=== PATIENT | male | born 1975 | race Caucasian/White ===

== ENCOUNTER 2018-06-04 11:52 | Emergency (ER) | payer SELFPAY ==
--- OUTSIDE RECORDS SUMMARY | 2018-06-04 11:55 | XMS REPORT | Clinical Summary ---
:1975 Author Organization [facility] Address [address] [place] [address] Phone Care Team Providers Name Role Phone Unavailable Primary Care Provider Unavailable Allergies Active Allergy Reactions Severity Noted Date Comments Penicillins 08/04/2017 Current Medications Prescription Sig. Disp. Refills Start Date End Date Status verapamil Take 180 mg Active (CALAN-SR) 180 MG by mouth ER tablet nightly. clindamycin Take 1 21 capsule 0 08/04/2017 08/11/2017 (CLEOCIN) 300 MG capsule (300 capsule mg total) by mouth 3 (three) times daily for 7 days. acetaminophen-codei Take 1-2 15 tablet 0 08/04/2017 08/04/2017 Discontinued ne (TYLENOL #3) tablets by 300-30 mg per mouth every 6 tablet (six) hours as needed for Pain for up to 10 days. Max Daily Amount: 8 tablets acetaminophen-codei Take 1-2 15 tablet 0 08/04/2017 08/14/2017 ne (TYLENOL #3) tablets by 300-30 mg per mouth every 6 tablet (six) hours as needed for Pain for up to 10 days. Max Daily Amount: 8 tablets Active Problems Not on file Encounters Date Type Specialty Care Team Description 08/04/2017 Emergency Emergency Medicine Jimmie Fonseca, Abscess of right thigh (Primary Dx) after 06/03/2017 Immunizations Name Dates Previously Given Next Due Tdap 08/04/2017 Social History Tobacco Use Types Packs/Day Years Used Date Current Every Day Smoker Smokeless Tobacco: Never Used Alcohol Use Drinks/Week oz/Week Comments Yes Sex Assigned at Date Recorded Not on file Last Filed Vital Signs Vital Sign Reading Time Taken Blood Pressure 138/76 08/04/2017 12:24 PM [facility] [employer] Pulse 80 08/04/2017 12:24 PM [facility] Temperature 36.4 C (97.6 F) 08/04/2017 10:17 AM [facility] Respiratory Rate 18 08/04/2017 12:24 PM [facility] [employer] Oxygen Saturation 98% 08/04/2017 12:24 PM [facility] [employer] [employer] Inhaled Oxygen Concentration - - Weight 86.9 kg (191 lb 9.3 oz) 08/04/2017 10:17 AM [facility] [employer] Height 182.9 cm (6') 08/04/2017 10:17 AM [facility] [employer] Body Mass Index 25.98 08/04/2017 10:17 AM [facility] Plan of Treatment Not on file Procedures Procedure Name Priority Date/Time Associated Diagnosis Comments INCISION AND DRAINAGE Routine 08/04/2017 12:18 PM [facility] [employer] after 06/03/2017 Results Not on fileafter 06/03/2017
[2018-06-04] MEDS ORDERED: HYDROCODONE/APAP 7.5/325 MG TAB ONE (12:17)
--- NOTE | 2018-06-04 12:49 | RAD REPORT ---
EXAM DESCRIPTION: RAD - Hand Left 3 View - 06/04/2018 12:24 pm CLINICAL HISTORY: Animal bite COMPARISON: No comparisons FINDINGS: Soft tissue swelling is seen involving the dorsum of the hand. Bony irregularity is seen i nvolving the tuft of the fifth finger, which may indicate tuft fracture. A tiny punctate soft tissue radiodensity in the region may be a small foreign body.
--- NOTE | 2018-06-04 12:50 | EDPHYS ---
Physician Documentation [facility] Name: Refugio Nayak Age: 43 yrs Sex: Male : 1975 Arrival Date: 06/04/2018 Time: 11:54 Bed 11 Private MD: ED Physician Josse Donis HPI: 06/04 12:44 This 43 yrs old Male presents to ER via Ambulatory with complaints of kb STINGRAY INJURY. 12:44 The patient or guardian reports pain, a puncture wound, stingray lane, swelling, kb tenderness. The complaints affect the dorsum of left hand. Context: [place]. Onset: The symptoms/episode began/occurred just prior to arrival. Modifying factors: The symptoms are alleviated by nothing, the symptoms are aggravated by nothing. Associated signs and symptoms: The patient has no apparent associated signs or symptoms. Severity of symptoms: At their worst the symptoms were moderate, in the emergency department the symptoms are unchanged. The patient has not experienced similar symptoms in the past. The patient has not recently seen a physician. 12:47 lane removed by spouse wholesale representative. kb Historical: - Allergies: 12:04 PENICILLINS; sr5 - Home Meds: 12:04 HTN- out of meds [Active]; sr5 - PMHx: 12:04 Hypertension; sr5 - PSHx: 12:04 ACL replacement; sr5 - Immunization history:: Last tetanus immunization: up to date. - Social history:: Smoking status: Patient uses tobacco products, denies chronic smoking, but will smoke occasionally. - Ebola Screening: : Patient negative for fever greater than or equal to 101.5 degrees Fahrenheit, and additional compatible Ebola Virus Disease symptoms. ROS: 12:44 Constitutional: Negative for fever, chills, and weight loss, Cardiovascular: Negative kb for chest pain, palpitations, and edema, Respiratory: Negative for shortness of breath, cough, wheezing, and pleuritic chest pain, Abdomen/GI: Negative for abdominal pain, nausea, vomiting, diarrhea, and constipation, Neuro: Negative for headache, weakness, numbness, tingling, and seizure. 12:44 MS/extremity: Positive for erythema, pain, swelling, tenderness, of the left hand. 12:44 Skin: Positive for puncture. Exam: 12:43 Constitutional: This is a well developed, well nourished patient who is awake, alert, kb and in no acute distress. Head/Face: Normocephalic, atraumatic. Chest/axilla: Normal chest wall appearance and motion. Nontender with no deformity. No lesions are appreciated. Cardiovascular: Regular rate and rhythm with a normal S1 and S2. No gallops, murmurs, or rubs. Normal PMI, no JVD. No pulse deficits. Respiratory: Lungs have equal breath sounds bilaterally, clear to auscultation and percussion. No rales, rhonchi or wheezes noted. No increased work of breathing, no retractions or nasal flaring. Abdomen/GI: Soft, non-tender, with normal bowel sounds. No distension or tympany. No guarding or rebound. No evidence of tenderness throughout. Back: No spinal tenderness. No costovertebral tenderness. Full range of motion. MS/ Extremity: Pulses equal, no cyanosis. Neurovascular intact. Full, normal range of motion. Neuro: Awake and alert, GCS 15, oriented to person, place, time, and situation. Cranial nerves II-XII grossly intact. Motor strength 5/5 in all extremities. Sensory grossly intact. Cerebellar exam normal. Normal gait. 12:43 Skin: injury, puncture(s), that are superficial, of the left hand, with redness and swelling. Vital Signs: 12:04 BP 151 / 109; Pulse 97; Resp 20; Temp 98.2; Pulse Ox 97% on R/A; sr5 12:04 reports 30lb weight loss unintentionl "stress related" sr5 MDM: 12:08 Patient medically screened. kb 12:43 Data reviewed: vital signs, nurses notes. Data interpreted: Pulse oximetry: on room air kb is 97 %. Interpretation: normal. Counseling: I had a detailed discussion with the patient and/or guardian regarding: the historical points, exam findings, and any diagnostic results supporting the discharge/admit diagnosis, radiology results, the need for outpatient follow up, a family practitioner, to return to the emergency department if symptoms worsen or persist or if there are any questions or concerns that arise at home. 06/04 12:10 Order name: Hand Left 3 View XRAY; Complete Time: 12:50 kb Administered Medications: 12:13 Drug: [place] (7.5 mg-325 mg) 1 tabs Route: PO; sr5 12:53 Drug: Doxycycline 100 mg Route: PO; iw Disposition: 14:25 Co-signature as Attending Physician, Josse Donis MD. rn Disposition: 06/04/18 12:49 Discharged to Home. Impression: Puncture wound without foreign body of left hand. - Condition is Stable. - Discharge Instructions: Puncture Wound, [id number]. - Prescriptions for Doxycycline Hyclate 100 mg Oral Tablet - take 1 tablet by ORAL route every 12 hours; 20 tablet. Tramadol 50 mg Oral Tablet - take 1 tablet by ORAL route every 8 hours as needed; 12 tablet. - Medication Reconciliation Form, Thank You Letter, Antibiotic Education, Prescription Opioid Use form. - Follow up: Emergency Department; When: As needed; Reason: Worsening of condition. Follow up: Private Physician; When: 2 - 3 days; Reason: Recheck today's complaints, Continuance of care, Re-evaluation by your physician. Signatures: Dispatcher [employer] EDLuisa Lebron, EVP MARKETING-C EV[employer] MARKETING-Gia Hearn, RN Josse Mendiola MD MD rn Reseckmiguel angel, Robert RN RN sr5 Corrections: (The following items were deleted from the chart) 13:02 12:49 06/04/2018 12:49 Discharged to Home. Impression: Puncture wound without foreign sr5 body of left hand. Condition is Stable. Forms are Medication Reconciliation Form, Thank You Letter, Antibiotic Education, Prescription Opioid Use. Follow up: Emergency Department; When: As needed; Reason: Worsening of condition. Follow up: Private Physician; When: 2 - 3 days; Reason: Recheck today's complaints, Continuance of care, Re-evaluation by your physician. kb
--- NOTE | 2018-06-04 12:50 | ER ---
Nurse's Notes [facility] Name: Refugio Nayak Age: 43 yrs Sex: Male : 1975 Arrival Date: 06/04/2018 Time: 11:54 Bed 11 Private MD: Diagnosis: Puncture wound without foreign body of left hand Presentation: 06/04 12:03 Presenting complaint: Patient states: LEFT hand pain/swelling s/p stingray injury. sr5 Transition of care: patient was not received from another setting of care. Onset of symptoms was June 04, 2018. Risk Assessment: Do you want to hurt yourself or someone else? Patient reports no desire to harm self or others. Initial Sepsis Screen: Does the patient meet any 2 criteria? No. Patient's initial sepsis screen is negative. Care prior to arrival: None. 12:03 Method Of Arrival: Ambulatory sr5 12:03 Acuity: RENETTA 3 sr5 13:02 Initial Sepsis Screen: Does the patient have a suspected source of infection? No. sr5 Patient's initial sepsis screen is negative. Triage Assessment: 12:04 General: Appears uncomfortable, Behavior is calm, cooperative. Pain: Complains of pain sr5 in left hand Pain does not radiate. Pain currently is 10 out of 10 on a pain scale. Quality of pain is described as shooting. Historical: - Allergies: 12:04 PENICILLINS; sr5 - Home Meds: 12:04 HTN- out of meds [Active]; sr5 - PMHx: 12:04 Hypertension; sr5 - PSHx: 12:04 ACL replacement; sr5 - Immunization history:: Last tetanus immunization: up to date. - Social history:: Smoking status: Patient uses tobacco products, denies chronic smoking, but will smoke occasionally. - Ebola Screening: : Patient negative for fever greater than or equal to 101.5 degrees Fahrenheit, and additional compatible Ebola Virus Disease symptoms. Screenin:14 Abuse screen: Denies threats or abuse. Nutritional screening: No deficits noted. sr5 Tuberculosis screening: No symptoms or risk factors identified. Fall Risk None identified. Assessment: 12:14 General: Appears uncomfortable, Behavior is calm, cooperative. Pain: Complains of pain sr5 in left hand Pain does not radiate. Pain currently is 10 out of 10 on a pain scale. Quality of pain is described as sharp, shooting. Neuro: No deficits noted. Cardiovascular: No deficits noted. Respiratory: No deficits noted. GI: No deficits noted. : No deficits noted. EENT: No deficits noted. 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 Musculoskeletal: No deficits noted. Vital Signs: 12:04 BP 151 / 109; Pulse 97; Resp 20; Temp 98.2; Pulse Ox 97% on R/A; sr5 12:04 reports 30lb weight loss unintentionl "stress related" sr5 ED Course: 11:54 Patient arrived in ED. sb2 12:03 Triage completed. sr5 12:04 Arm band placed on. sr5 12:07 Robert Shannon, RN is Primary Nurse. sr5 12:08 Luisa Carrion FNP-C is PHCP. kb 12:08 Josse Donis MD is Attending Physician. kb 12:14 Patient has correct armband on for positive identification. Bed in low position. Call sr5 light in reach. 12:20 X-ray completed. Portable x-ray completed in exam room. Patient tolerated procedure la2 well. 12:22 Hand Left 3 View XRAY In Process Unspecified. EDMS 13:02 No provider procedures requiring assistance completed. Patient did not have IV access sr5 during this emergency room visit. Administered Medications: 12:13 Drug: [place] (7.5 mg-325 mg) 1 tabs Route: PO; sr5 12:53 Drug: Doxycycline 100 mg Route: PO; iw Outcome: 12:49 Discharge ordered by MD. kb 13:02 Patient left the ED. sr5 13:02 Discharged to home ambulatory, with family. sr5 13:02 Condition: good 13:02 Discharge instructions given to patient, Instructed on discharge instructions, follow up and referral plans. medication usage, Demonstrated understanding of instructions, follow-up care, medications. 13:02 Prescriptions given X 2. sr5 Signatures: Dispatcher [employer] EDAZ Luisa Carrion FNP-C FNP-Ckb Williams, Irene, RN RN iw Resecker, Sam RN RN sr5 Sakina [place] la2 Ayse Hyman sb2
[2018-06-04] MEDS ORDERED: DOXYCYCLINE 100 MG CAP PO ONE (12:57)
== END 2018-06-04 13:02 | disposition home or self-care (01) ==
LOC: ER 11:52
DX: S61.432A Puncture wound without foreign body of left hand, initial encounter (principal); W56.82XA Struck by other nonvenomous marine animals, initial encounter; Y93.9 Activity, unspecified; Y92.89 Other specified places as the place of occurrence of the external cause; Z72.0 Tobacco use; Z88.0 Allergy status to penicillin
CPT/HCPCS: 99283